=== PATIENT | male | born 1990 | race African-American/Black ===

== ENCOUNTER 2019-07-03 19:48 | Emergency (ER) | payer OTHER ==
[2019-07-03 20:06] VITALS: TEMP 97.8; BMI 26.6
--- NOTE | 2019-07-03 20:23 | PDOC ---
History of Present Illness - General Chief Complaint: Chest Pain Stated Complaint: CHEST PAIN Time Seen by Provider: 07/03/19 20:23 - History of Present Illness Initial Comments: 07/03/19 21:01 28 year old man with no medical history who presents with 4 days of L sided chest pain described as stabbing that occurs at night when he goes to bed. He reports the pain is 7/10 and is severe enough that he can't sleep. It is worse with lying back and with taking a deep breath and improves with sitting up. He denies shortness of breath, n/v, diaphoresis, lightheadedness, abdominal pain, fever or recent illness. He has no family history of sudden cardiac or family history of heart attack. He has no other complaints at bedside. ROS GENERAL/CONSTITUTIONAL: No fever or chills. No weakness. HEAD, EYES, EARS, NOSE AND THROAT: No change in vision. No ear pain or discharge. No sore throat. CARDIOVASCULAR: + chest pain, No shortness of breath RESPIRATORY: No cough, wheezing, or hemoptysis. GASTROINTESTINAL: No nausea, vomiting, diarrhea or constipation. GENITOURINARY: No dysuria, frequency, or change in urination. MUSCULOSKELETAL: No joint or muscle swelling or pain. No neck or back pain. SKIN: No rash NEUROLOGIC: No headache, vertigo, loss of consciousness, or change in strength/ sensation. ENDOCRINE: No increased thirst. No abnormal weight change HEMATOLOGIC/LYMPHATIC: No anemia, easy bleeding, or history of blood clots. ALLERGIC/IMMUNOLOGIC: No hives or skin allergy. PE GENERAL: Awake, alert, and fully oriented, in no acute distress HEAD: No signs of trauma, normocephalic, atraumatic EYES: EOMI, sclera anicteric, conjunctiva clear ENT: oropharynx clear without exudates. Moist mucosa NECK: Normal ROM, supple LUNGS: No distress, speaks full sentences, + L mid lobe crackles HEART: Regular rate and rhythm, normal S1 and S2, no murmurs, rubs or gallops, peripheral pulses normal and equal bilaterally. ABDOMEN: Soft, nontender No guarding, no rebound. No masses EXTREMITIES : Normal inspection, Normal range of motion, no edema. No clubbing or cyanosis. NEUROLOGICAL: Cranial nerves II through XII grossly intact. Normal speech, normal gait, no focal sensorimotor deficits SKIN: Warm, Dry, normal turgor, no rashes or lesions noted MDM DDX including but not limited to: pleuritis msk r/o acs ED Course: Will pursue cbc, cmp, trop, ekg, cxr Belinda Diamond, PGY2 Emergency Medicine Past History - Past Medical History Allergies/Adverse Reactions: Allergies Allergy/AdvReac Type Severity Reaction Status Date / Time No Known Allergies Allergy Verified 10/23/15 18:26 Home Medications: Ambulatory Orders Ciprofloxacin 0.3% Eye Drops [Ciloxan 0.3% Eye Drops -] 1 drop OD Q2H #1 bottle 06/29/15 Ibuprofen [Motrin -] 800 mg PO TID #30 tablet 06/29/15 - Immunization History Immunization Up to Date: Yes - Psycho Social/Smoking Cessation Hx Smoking History: Never smoked Number of Cigarettes Smoked Daily: 1 Hx Alcohol Use: Yes ("occasionally") Drug/Substance Use Hx: No *Physical Exam - Vital Signs Last Vital Signs Temp Pulse Resp BP Pulse Ox 97.8 F 93 H 20 133/93 97 07/03/19 20:02 07/03/19 20:02 07/03/19 20:02 07/03/19 20:02 07/03/19 20:02
--- NOTE | 2019-07-03 20:28 | PDOC ---
Attending Attestation - Resident Resident Name: Belinda Diamond - ED Attending Attestation I have performed the following: I have examined & evaluated the patient, The case was reviewed & discussed with the resident, I agree w/resident's findings & plan - HPI HPI: 07/03/19 22:48 see resident hpi - Physicial Exam PE: 07/03/19 22:48 agree with resident exam - Medical Decision Making 07/03/19 22:48 28-year-old male with intermittent left-sided chest pain Chest x-ray suggests some increased bowel gas possibly contributing to patient' s discomfort secondary to radiation EKG shows no acute abnormalities Labs including troponin and d-dimer are unremarkable Pain has been present and intermittent with some positional component x3 to 4 days Will DC with recommended outpatient cardiology clearance with no heavy exercise
[2019-07-03 22:11] LABS: HEMATOCRIT 39.6 % (35.4-49); HEMOGLOBIN 12.2 GM/dL (11.7-16.9); LYMPH % 49.3 % (8-40); MCH 23.3 pg (25.7-33.7); MCHC 30.8 g/dl (32.0-35.9); MEAN CELL VOLUME 75.6 fl (80-96); MEAN PLT VOLUME 10.5 fl (7.5-11.1); MONO % 7.3 % (3.8-10.2); NEUT % 41.4 % (42.8-82.8); PLATELET COUNT 180 K/MM3 (134-434); RBC 5.24 M/mm3 (4.00-5.60); RDW 13.2 % (11.9-15.9)
[2019-07-03 22:53] LABS: ALBUMIN 3.8 g/dl (3.4-5.0); BILIRUBIN,TOTAL 0.4 mg/dL (0.2-1); BLOOD UREA NITROGEN 15.4 mg/dL (7-18); CREATININE 1.1 mg/dL (0.55-1.3); POTASSIUM 4.1 mmol/L (3.5-5.1)
--- NOTE | 2019-07-03 23:03 | PDOC ---
*Physical Exam - Vital Signs Last Vital Signs Temp Pulse Resp BP Pulse Ox 97.8 F 93 H 20 133/93 97 07/03/19 20:02 07/03/19 20:02 07/03/19 20:02 07/03/19 20:02 07/03/19 20:02 - Physical Exam 07/03/19 22:58 Patient's care endorsed to me at the end of Dr. Diamond's shift. Patient is 28YOM without PMH who p/w chest pain (low risk). Pending labs, EKG, CXR then will decide on dispo. Heart Score/ECG Review - History History: Slightly suspicious - Electrocardiogram EKG: Normal - Age Age: </= 45 - Risk Factors Based on the list above the patient has:: No risk factors known - Troponin Troponin: </= normal limit - Score Heart Score - Total: 0 #1 07/03/19 23:00 Sinus rhythm, rate 81, normal axis and intervals, no ischemic ST-T changes ED Treatment Course - LABORATORY CBC & Chemistry Diagram: 07/03/19 21:30 07/03/19 21:30 - ADDITIONAL ORDERS Additional order review: Laboratory Results 07/03/19 07/03/19 07/03/19 21:30 21:30 21:30 D-Dimer < 215 Sodium 138 Potassium 4.1 Chloride 103 Carbon Dioxide 30 Anion Gap 6 L BUN 15.4 Creatinine 1.1 Est GFR (CKD-EPI)AfAm 103.85 Est GFR (CKD-EPI)NonAf 89.61 Random Glucose 90 Calcium 9.0 Total Bilirubin 0.4 AST 36 ALT 38 Alkaline Phosphatase 53 Troponin I < 0.02 Total Protein 7.0 Albumin 3.8 07/03/19 21:30 RBC 5.24 MCV 75.6 L MCHC 30.8 L RDW 13.2 MPV 10.5 Neutrophils % 41.4 L Lymphocytes % 49.3 H Monocytes % 7.3 Eosinophils % 1.0 Basophils % 1.0 Medical Decision Making - Medical Decision Making 07/03/19 23:00 Laboratory Tests 07/03/19 07/03/19 07/03/19 21:30 21:30 21:30 WBC RBC Hgb Hct MCV MCH MCHC RDW Plt Count MPV Absolute Neuts (auto) Neutrophils % Lymphocytes % Monocytes % Eosinophils % Basophils % Nucleated RBC % D-Dimer < 215 Sodium 138 Potassium 4.1 Chloride 103 Carbon Dioxide 30 Anion Gap 6 L BUN 15.4 Creatinine 1.1 Est GFR (CKD-EPI)AfAm 103.85 Est GFR (CKD-EPI)NonAf 89.61 Random Glucose 90 Calcium 9.0 Total Bilirubin 0.4 AST 36 ALT 38 Alkaline Phosphatase 53 Troponin I < 0.02 Total Protein 7.0 Albumin 3.8 07/03/19 21:30 WBC 5.0 RBC 5.24 Hgb 12.2 Hct 39.6 MCV 75.6 L MCH 23.3 L MCHC 30.8 L RDW 13.2 Plt Count 180 MPV 10.5 Absolute Neuts (auto) 2.1 Neutrophils % 41.4 L Lymphocytes % 49.3 H Monocytes % 7.3 Eosinophils % 1.0 Basophils % 1.0 Nucleated RBC % 0 D-Dimer Sodium Potassium Chloride Carbon Dioxide Anion Gap BUN Creatinine Est GFR (CKD-EPI)AfAm Est GFR (CKD-EPI)NonAf Random Glucose Calcium Total Bilirubin AST ALT Alkaline Phosphatase Troponin I Total Protein Albumin EKG benign. CXR benign. Patient denies pain at this time. No new abnormal rhythms have been observed. On last reassessment VS are stable, Pts pain is resolved, and exam is benign. The Pts HEART score indicates they are low risk and do not require admission currently. The Pt is appropriate for discharge with close outpatient follow up. They are comfortable with this plan and will follow up with PCP in 1-3 days. 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 Specific return precautions are discussed and they will come back to the ER if necessary. Discharge - Discharge Information Problems reviewed: Yes Clinical Impression/Diagnosis: Chest pain Qualifiers: Chest pain type: unspecified Qualified Code(s): R07.9 - Chest pain, unspecified Condition: Stable Disposition: HOME - Admission No - Follow up/Referral - Patient Discharge Instructions Patient Printed Discharge Instructions: DI for Chest Pain Additional Instructions: You were seen in the ER for chest pain. We did lab work on your blood and urine , an electrocardiogram, and a chest x-ray, and we did not find any concerning abnormalities. Your symptoms improved with the medications we gave you in the ER. After our assessment, we do not believe you are having a medical emergency at this time, and we believe you are safe to go home. Take over the counter pain medications for your pain, as instructed on the medication label. Please follow up with your primary care provider in 1-3 days. Call their clinic as soon as possible, tell them you were seen in the ER, and tell them you need an appointment. If you have any new or worsening symptoms, especially worsening chest pain, jaw pain, shoulder/arm pain, shortness of breath, sweats, nausea, loss of consciousness, palpitations, or other symptoms, please come back to the ER at any time (24 hours a day). If you are having severe or life threatening symptoms, or symptoms that make it unsafe to drive or have someone drive you, please call 911. - Post Discharge Activity
[2019-07-03 23:46] VITALS: BP 126/89; PULSE 67
--- NOTE | 2019-07-04 11:35 | EKG ---
Test Reason : Blood Pressure : / mmHG Vent. Rate : 081 BPM Atrial Rate : 081 BPM P-R Int : 140 ms QRS Dur : 084 ms QT Int : 344 ms P-R-T Axes : 069 063 062 degrees QTc Int : 399 ms NORMAL SINUS RHYTHM NORMAL ECG NO PREVIOUS ECGS AVAILABLE Confirmed by LAURA KELLY, ASTON ([id number]) on 07/04/2019 11:34:57 AM Referred By: Confirmed By:ASTON SANCHEZ MD
== END 2019-07-03 23:46 | disposition home or self-care (01) ==
LOC: JER 19:48
DX: R07.9 Chest pain, unspecified (principal)
CPT/HCPCS: 36415; 71046-TC-FY; 80053; 84484; 85025; 85379; 93005; 93010; 99283-25

== ENCOUNTER 2023-04-19 07:20 | Emergency (ER) | payer OTHER ==
[2023-04-19 07:28] VITALS: RESP 20; BMI 25.6
[2023-04-19 09:11] VITALS: BP 164/71; PULSE 73; TEMP 97.6
== END 2023-04-19 09:09 | disposition home or self-care (01) ==
LOC: JER 07:20
DX: R19.7 Diarrhea, unspecified (principal)
CPT/HCPCS: 99282-25